=== PATIENT | female | born 1985 | race Caucasian/White ===

== ENCOUNTER → 2023-10-18 | Outpatient (CLI) | payer MEDICAID ==
[2023-10-18 17:20] LABS: HEMATOCRIT 38.8 % (36.0-47.0); HEMOGLOBIN 12.8 g/dl (12.0-15.5); MEAN CORPUSCULAR HEMOGLOBIN 30.9 pg (27.0-33.0); MEAN CORPUSCULAR VOLUME 93.7 fl (80.0-96.0); PLATELET COUNT, AUTOMATED 352 10^3/uL (150-450); RED BLOOD COUNT 4.14 10^6/uL (4.00-5.40); WHITE BLOOD COUNT 9.7 10^3/uL (4.0-10.0)
[2023-10-18 17:49] LABS: ALBUMIN 4.2 G/DL (3.2-5.2); ALKALINE PHOSPHATASE 61 U/L (46-116); ALT/SGPT 11 U/L (7.0-40); AST/SGOT 11 U/L (<34); BILIRUBIN,TOTAL 0.3 MG/DL (0.3-1.2); BLOOD UREA NITROGEN 10 MG/DL (9-23); CALCIUM LEVEL 9.3 MG/DL (8.5-10.1); CARBON DIOXIDE LEVEL 27 MMOL/L (20-31); CHLORIDE LEVEL 105 MMOL/L (98-107); CREATININE FOR GFR 0.59 MG/DL (0.55-1.30); GLOMERULAR FILTRATION RATE > 60.0 (>60); GLUCOSE, FASTING 74 MG/DL (60-100); HCG, SERUM QUALITATIVE NEGATIVE (NEGATIVE); POTASSIUM SERUM 3.9 MMOL/L (3.5-5.1); SODIUM LEVEL 138 MMOL/L (136-145)
[2023-10-18 18:17] LABS: HIV 1&2 SCREEN NEGATIVE (NEGATIVE)
[2023-10-18 18:26] LABS: HEPATITIS C VIRUS ABY INDEX < 0.02 INDEX (<0.8)
[2023-10-18 18:52] LABS: CHLAMYDIA DNA AMPLIFICATION NEGATIVE (NEGATIVE); GC DNA AMPLIFICATION NEGATIVE (NEGATIVE)
== END ==
LOC: M WUC 12:47
PROVIDERS: ATTEND Family Medicine
DX: F11.20 Opioid dependence, uncomplicated (principal)

== ENCOUNTER 2023-11-20 16:12 | Inpatient (IN) | payer OTHER ==
[~2023-11-20] VITALS: Ht 162.6 cm; Wt 41.2 kg
[2023-11-20] VITALS (23 sets, daily range): BP systolic 101–136; BP diastolic 56–78; TEMP 98.3; O2SAT 98–100
[2023-11-20] MEDS: ACETAMINOPHEN TAB 650MG DOSE (2X325MG) PO ONE (17:10)
[2023-11-20 19:11] LABS: HEMATOCRIT 37.8 % (36.0-47.0); HEMOGLOBIN 13.1 g/dl (12.0-15.5); MEAN CORPUSCULAR HEMOGLOBIN 31.6 pg (27.0-33.0); MEAN CORPUSCULAR HGB CONC 34.7 g/dl (32.0-36.5); MEAN CORPUSCULAR VOLUME 91.3 fl (80.0-96.0); PLATELET COUNT, AUTOMATED 337 10^3/uL (150-450); RED BLOOD COUNT 4.14 10^6/uL (4.00-5.40); WHITE BLOOD COUNT 21.8 10^3/uL (4.0-10.0)
[2023-11-20] MEDS ORDERED: ISOVUE-370 76% 100ML VIAL As Ordered ONE (19:20)
[2023-11-20 19:27] LABS: INR 1.08; PROTHROMBIN TIME 13.7 SECONDS (12.5-14.5)
[2023-11-20 19:34] LABS: ALBUMIN 4.5 G/DL (3.2-5.2); ALKALINE PHOSPHATASE 67 U/L (46-116); ALT/SGPT 13 U/L (7.0-40); AST/SGOT 18 U/L (<34); BILIRUBIN,DIRECT < 0.1 MG/DL (<0.4); BILIRUBIN,TOTAL 0.3 MG/DL (0.3-1.2); BLOOD UREA NITROGEN 10 MG/DL (9-23); CALCIUM LEVEL 9.3 MG/DL (8.5-10.1); CARBON DIOXIDE LEVEL 24 MMOL/L (20-31); CHLORIDE LEVEL 110 MMOL/L (98-107); CREATININE FOR GFR 0.62 MG/DL (0.55-1.30); GLOMERULAR FILTRATION RATE > 60.0 (>60); GLUCOSE, FASTING 106 MG/DL (60-100); POTASSIUM SERUM 4.1 MMOL/L (3.5-5.1); SODIUM LEVEL 139 MMOL/L (136-145); TOTAL PROTEIN 7.3 G/DL (5.7-8.2)
[2023-11-20 19:42] LABS: RSV AMPLIFICATION NEGATIVE (NEGATIVE)
[2023-11-20] MEDS: NICOTINE 21MG/24HR 1 EA TRANSDERMAL TD ONE (19:47)
[2023-11-20] MEDS: KETOROLAC 30 MG/ML 1ML VIAL IV ONE ×2 (20:06→23:04)
[2023-11-20] MEDS ORDERED: ONDANSETRON 4MG 2ML VIAL IV PRN (20:25)
[2023-11-20] MEDS ORDERED: LEVALBUTEROL 1.25MG 0.5ML CONCENTRATE NEB NEB PRN (20:25)
[2023-11-20] MEDS ORDERED: BISACODYL 10MG SUPP PR PRN (20:25)
[2023-11-20] MEDS ORDERED: ACETAMINOPHEN TAB 650MG DOSE (2X325MG) PO PRN (20:25)
[2023-11-20] MEDS ORDERED: SUBO8MIS SL (21:01)
[2023-11-20] MEDS: flumazeniL 0.5MG/5ML VIAL IV STA (21:21)
[2023-11-20] MEDS: LIDOCAINE 1% MDV 20ML VIAL SC STA (21:53)
[2023-11-20] MEDS: KCL 20MEQ IN D5/NS 1000ML 1,000 ML IV SCH (22:28)
[2023-11-20] MEDS: MIDAZOLAM INJ 2MG/2ML VIAL IV STA (22:51)
[2023-11-20] MEDS: DOCUSATE SODIUM 100MG CAPSULE PO SCH (23:11)
[2023-11-20] MEDS: HEPARIN SOD (PORCINE) 5000UNITS/ML 1ML VIAL/SYRINGE SC SCH (23:11)
[2023-11-20] MEDS: PERCOCET 5MG/325MG TAB PO PRN (23:47)
[2023-11-21] VITALS (12 sets, daily range): BP systolic 108–147; BP diastolic 57–80; TEMP 97.3–100.4; O2SAT 95–99
[2023-11-21] MEDS: LEVALBUTEROL 1.25MG 0.5ML CONCENTRATE NEB NEB SCH (02:57)
[2023-11-21] MEDS: KETOROLAC 30 MG/ML 1ML VIAL IV SCH (04:45)
[2023-11-21 05:46] LABS: ABG BASE EXCESS -3.1 (-2.0-2.0); ABG O2 SATURATION 97.3 % (95.0-99.0); ABG PARTIAL PRESSURE CO2 29.8 mmHg (35.0-45.0); ABG PARTIAL PRESSURE O2 90.4 mmHg (75.0-100.0); ABG STANDARD HCO3 21.9 MMOL/L. (22.0-26.0); ABG TOTAL CO2 20.9 MMOL/L (22.0-29.0); ABG pH (ARTERIAL) 7.444 UNITS (7.350-7.450)
[2023-11-21 05:58] LABS: BASO % 0.3 % (0.0-1.0); EOS % 0.1 % (0.0-3.0); HEMATOCRIT 33.2 % (36.0-47.0); HEMOGLOBIN 11.6 g/dl (12.0-15.5); LYMPH # 1.9 10^3/uL (1.5-5.0); LYMPH % 15.8 % (24.0-44.0); MEAN CORPUSCULAR HEMOGLOBIN 31.9 pg (27.0-33.0); MEAN CORPUSCULAR HGB CONC 34.9 g/dl (32.0-36.5); MEAN CORPUSCULAR VOLUME 91.2 fl (80.0-96.0); MONO # 0.7 10^3/uL (0.0-0.8); MONO % 5.7 % (2.0-8.0); NEUTROPHILS # 9.2 10^3/uL (1.5-8.5); NEUTROPHILS % 77.8 % (36.0-66.0); PLATELET COUNT, AUTOMATED 312 10^3/uL (150-450); RED BLOOD COUNT 3.64 10^6/uL (4.00-5.40); WHITE BLOOD COUNT 11.9 10^3/uL (4.0-10.0)
[2023-11-21 06:21] LABS: BLOOD UREA NITROGEN 8 MG/DL (9-23); CALCIUM LEVEL 8.3 MG/DL (8.5-10.1); CARBON DIOXIDE LEVEL 23 MMOL/L (20-31); CHLORIDE LEVEL 113 MMOL/L (98-107); CREATININE FOR GFR 0.57 MG/DL (0.55-1.30); GLOMERULAR FILTRATION RATE > 60.0 (>60); GLUCOSE, FASTING 132 MG/DL (60-100); POTASSIUM SERUM 3.9 MMOL/L (3.5-5.1); SODIUM LEVEL 139 MMOL/L (136-145)
[2023-11-21] MEDS: MOM 30ML SUSPENSION UDC PO SCH (09:00)
[2023-11-21] MEDS: PANTOPRAZOLE 40MG TAB (PROTONIX) PO SCH (10:04)
[2023-11-21] MEDS: RAMELTEON 8 MG TAB (ROZEREM) PO PRN (20:59)
[2023-11-21] MEDS: PERCOCET 5MG/325MG TAB PO PRN (20:59)
[2023-11-22 03:25] VITALS: BP 116/68; TEMP 97.9; O2SAT 98
[2023-11-22 05:35] LABS: BASO % 0.4 % (0.0-1.0); EOS # 0.2 10^3/uL (0.0-0.5); EOS % 2.2 % (0.0-3.0); HEMATOCRIT 30.9 % (36.0-47.0); HEMOGLOBIN 10.5 g/dl (12.0-15.5); LYMPH # 1.6 10^3/uL (1.5-5.0); MEAN CORPUSCULAR HEMOGLOBIN 31.4 pg (27.0-33.0); MEAN CORPUSCULAR VOLUME 92.5 fl (80.0-96.0); MONO # 0.7 10^3/uL (0.0-0.8); MONO % 10.3 % (2.0-8.0); NEUTROPHILS # 4.3 10^3/uL (1.5-8.5); NEUTROPHILS % 62.8 % (36.0-66.0); PLATELET COUNT, AUTOMATED 271 10^3/uL (150-450); RED BLOOD COUNT 3.34 10^6/uL (4.00-5.40); WHITE BLOOD COUNT 6.8 10^3/uL (4.0-10.0)
[2023-11-22 05:58] LABS: BLOOD UREA NITROGEN 7 MG/DL (9-23); CALCIUM LEVEL 8.3 MG/DL (8.5-10.1); CARBON DIOXIDE LEVEL 25 MMOL/L (20-31); CHLORIDE LEVEL 114 MMOL/L (98-107); CREATININE FOR GFR 0.63 MG/DL (0.55-1.30); GLOMERULAR FILTRATION RATE > 60.0 (>60); GLUCOSE, FASTING 92 MG/DL (60-100); SODIUM LEVEL 141 MMOL/L (136-145)
[2023-11-22 07:52] VITALS: BP 130/70; TEMP 97.7; O2SAT 99
[2023-11-22] MEDS ORDERED: HOME MED LIST COMPLETE! XX SCH (08:50)
[2023-11-22] MEDS: BUPRENORPHINE/NALOXONE 8-2MG SUBLINGUAL TABLET(SUBOXONE) SL SCH (10:16)
[2023-11-22 12:30] VITALS: BP 114/77; TEMP 98.2; O2SAT 97
[2023-11-22 16:00] VITALS: BP 110/82; TEMP 98.8; O2SAT 100
[2023-11-22 19:32] VITALS: BP 116/70; TEMP 98.4; O2SAT 98
[2023-11-22 23:26] VITALS: BP 110/74; TEMP 98.2; O2SAT 99
[2023-11-23 03:38] VITALS: BP 100/58; TEMP 98.9; O2SAT 98
[2023-11-23 05:11] LABS: BASO # 0.1 10^3/uL (0.0-0.2); EOS # 0.5 10^3/uL (0.0-0.5); EOS % 6.5 % (0.0-3.0); HEMATOCRIT 29.3 % (36.0-47.0); HEMOGLOBIN 10.1 g/dl (12.0-15.5); LYMPH # 3.1 10^3/uL (1.5-5.0); LYMPH % 38.9 % (24.0-44.0); MEAN CORPUSCULAR HEMOGLOBIN 31.2 pg (27.0-33.0); MEAN CORPUSCULAR HGB CONC 34.5 g/dl (32.0-36.5); MEAN CORPUSCULAR VOLUME 90.4 fl (80.0-96.0); MONO # 0.7 10^3/uL (0.0-0.8); MONO % 8.3 % (2.0-8.0); NEUTROPHILS # 3.6 10^3/uL (1.5-8.5); NEUTROPHILS % 44.9 % (36.0-66.0); PLATELET COUNT, AUTOMATED 272 10^3/uL (150-450); RED BLOOD COUNT 3.24 10^6/uL (4.00-5.40)
[2023-11-23 05:38] LABS: BLOOD UREA NITROGEN 12 MG/DL (9-23); CALCIUM LEVEL 8.4 MG/DL (8.5-10.1); CARBON DIOXIDE LEVEL 25 MMOL/L (20-31); CHLORIDE LEVEL 111 MMOL/L (98-107); CREATININE FOR GFR 0.63 MG/DL (0.55-1.30); GLOMERULAR FILTRATION RATE > 60.0 (>60); GLUCOSE, FASTING 90 MG/DL (60-100); POTASSIUM SERUM 3.7 MMOL/L (3.5-5.1); SODIUM LEVEL 140 MMOL/L (136-145)
[2023-11-23 07:39] VITALS: BP 117/74; TEMP 98.8; O2SAT 99
[2023-11-23] MEDS: NICOTINE 14 MG/24 HR TRANSDERMAL TD SCH (09:50)
[2023-11-23 11:50] VITALS: BP 123/80; TEMP 98.7; O2SAT 100
[2023-11-23 15:48] VITALS: BP 121/75; TEMP 98.8; O2SAT 98
[2023-11-23 19:10] VITALS: BP 134/78; TEMP 98.9; O2SAT 100
[2023-11-23 23:00] VITALS: BP 128/80; TEMP 98.3; O2SAT 99
[2023-11-24 03:48] VITALS: BP 108/60; TEMP 98; O2SAT 98
[2023-11-24 05:43] LABS: BASO # 0.1 10^3/uL (0.0-0.2); BASO % 0.8 % (0.0-1.0); EOS # 0.4 10^3/uL (0.0-0.5); EOS % 4.1 % (0.0-3.0); HEMATOCRIT 30.1 % (36.0-47.0); HEMOGLOBIN 10.3 g/dl (12.0-15.5); LYMPH # 2.9 10^3/uL (1.5-5.0); LYMPH % 31.9 % (24.0-44.0); MEAN CORPUSCULAR HEMOGLOBIN 31.8 pg (27.0-33.0); MEAN CORPUSCULAR HGB CONC 34.2 g/dl (32.0-36.5); MEAN CORPUSCULAR VOLUME 92.9 fl (80.0-96.0); MONO # 0.7 10^3/uL (0.0-0.8); MONO % 7.4 % (2.0-8.0); NEUTROPHILS % 55.5 % (36.0-66.0); PLATELET COUNT, AUTOMATED 297 10^3/uL (150-450); RED BLOOD COUNT 3.24 10^6/uL (4.00-5.40); WHITE BLOOD COUNT 9.1 10^3/uL (4.0-10.0)
[2023-11-24 06:17] LABS: BLOOD UREA NITROGEN 8 MG/DL (9-23); CALCIUM LEVEL 8.5 MG/DL (8.5-10.1); CARBON DIOXIDE LEVEL 24 MMOL/L (20-31); CHLORIDE LEVEL 113 MMOL/L (98-107); CREATININE FOR GFR 0.57 MG/DL (0.55-1.30); GLOMERULAR FILTRATION RATE > 60.0 (>60); GLUCOSE, FASTING 84 MG/DL (60-100); POTASSIUM SERUM 4.3 MMOL/L (3.5-5.1); SODIUM LEVEL 142 MMOL/L (136-145)
[2023-11-24 07:16] VITALS: BP 111/71; TEMP 98.4; O2SAT 99
[2023-11-24] MEDS: LIDOCAINE 1% MDV 20ML VIAL SC STA (10:05)
[2023-11-24] MEDS: MIDAZOLAM INJ 2MG/2ML VIAL IV STA (10:05)
[2023-11-24] MEDS: flumazeniL 0.5MG/5ML VIAL IV STA (10:05)
[2023-11-24 11:49] VITALS: BP 128/75; TEMP 98; O2SAT 99
[2023-11-24 16:00] VITALS: BP 127/82; TEMP 99.3; O2SAT 100
[2023-11-24 18:54] VITALS: BP 130/69; TEMP 97.9; O2SAT 100
[2023-11-24 23:22] VITALS: BP 113/80; TEMP 98.2; O2SAT 96
[2023-11-25 04:00] VITALS: BP 102/55; TEMP 98.2; O2SAT 96
[2023-11-25 06:00] LABS: BASO # 0.1 10^3/uL (0.0-0.2); BASO % 0.7 % (0.0-1.0); EOS # 0.5 10^3/uL (0.0-0.5); EOS % 5.4 % (0.0-3.0); HEMOGLOBIN 10.6 g/dl (12.0-15.5); LYMPH # 3.9 10^3/uL (1.5-5.0); MEAN CORPUSCULAR HEMOGLOBIN 31.4 pg (27.0-33.0); MEAN CORPUSCULAR HGB CONC 34.2 g/dl (32.0-36.5); MEAN CORPUSCULAR VOLUME 91.7 fl (80.0-96.0); MONO # 0.6 10^3/uL (0.0-0.8); MONO % 7.5 % (2.0-8.0); NEUTROPHILS # 3.2 10^3/uL (1.5-8.5); NEUTROPHILS % 39.2 % (36.0-66.0); PLATELET COUNT, AUTOMATED 308 10^3/uL (150-450); RED BLOOD COUNT 3.38 10^6/uL (4.00-5.40); WHITE BLOOD COUNT 8.3 10^3/uL (4.0-10.0)
[2023-11-25 06:31] LABS: BLOOD UREA NITROGEN 9 MG/DL (9-23); CALCIUM LEVEL 8.8 MG/DL (8.5-10.1); CARBON DIOXIDE LEVEL 26 MMOL/L (20-31); CHLORIDE LEVEL 113 MMOL/L (98-107); CREATININE FOR GFR 0.66 MG/DL (0.55-1.30); GLOMERULAR FILTRATION RATE > 60.0 (>60); GLUCOSE, FASTING 87 MG/DL (60-100); POTASSIUM SERUM 4.5 MMOL/L (3.5-5.1); SODIUM LEVEL 142 MMOL/L (136-145)
[2023-11-25 07:36] VITALS: BP 127/69; TEMP 99.6; O2SAT 100
== END 2023-11-25 11:46 | disposition home or self-care (01) | DRG 135 ==
LOC: M ED 16:12 → EEVIPCON 21:13 → M ICU 21:13 → M PCU 11-21 14:58
PROVIDERS: ADMIT Surgery; ATTEND Internal Medicine
PROC: 0W9930Z Drainage of Right Pleural Cavity with Drainage Device, Percutaneous Approach (ICD-10-PCS; principal; 2023-11-20)
DX: S27.0XXA Traumatic pneumothorax, initial encounter (principal); S22.069A Unspecified fracture of T7-T8 vertebra, initial encounter for closed fracture; F11.20 Opioid dependence, uncomplicated; J98.11 Atelectasis; F17.210 Nicotine dependence, cigarettes, uncomplicated; D50.0 Iron deficiency anemia secondary to blood loss (chronic); S22.31XA Fracture of one rib, right side, initial encounter for closed fracture; R63.6 Underweight; T79.7XXA Traumatic subcutaneous emphysema, initial encounter; Y04.0XXA Assault by unarmed brawl or fight, initial encounter; Y07.030 Male partner, current, perpetrator of maltreatment and neglect; Y92.009 Unspecified place in unspecified non-institutional (private) residence as the place of occurrence of the external cause; Y99.8 Other external cause status; Y93.9 Activity, unspecified; Z68.1 Body mass index [BMI] 19.9 or less, adult

== ENCOUNTER → 2023-12-09 | Outpatient (CLI) | payer OTHER ==
[~2023-12-09] MED LIST: SUBO8MIS SL
== END ==
LOC: M PLAIMG 13:49
PROVIDERS: ATTEND Thoracic Surgery (Cardiothoracic Vascular Surgery)
DX: S27.0XXD Traumatic pneumothorax, subsequent encounter (principal)